=== PATIENT | female | born 1995 | race Caucasian/White ===

== ENCOUNTER 2019-04-08 13:41 | Emergency (ER) | payer OTHER, SELFPAY ==
[2019-04-08] MEDS ORDERED: Amoxicillin/Potassium Clav 875 MG TAB ONE (14:00)
== END 2019-04-08 14:38 | disposition home or self-care (01) ==
LOC: BURERS 13:41
DX: H65.92 Unspecified nonsuppurative otitis media, left ear (principal); F17.210 Nicotine dependence, cigarettes, uncomplicated
CPT/HCPCS: 99282